=== PATIENT | female | born 1985 | race Caucasian/White ===

== ENCOUNTER 2024-04-24 09:55 | Emergency (ER) | payer BC ==
[~2024-04-24] VITALS: Ht 162.6 cm; Wt 79.4 kg
[2024-04-24 10:40] VITALS: PULSE 86; RESP 18; TEMP 97.6
[2024-04-24 11:32] LABS: CORONAVIRUS COVID-19 AG NEGATIVE (NEGATIVE); INFLUENZA A AG NEGATIVE (NEGATIVE); INFLUENZA B AG NEGATIVE (NEGATIVE)
[2024-04-24 13:19] LABS: BACTERIA,URINE FEW /HPF; BILIRUBIN,URINE NEGATIVE (NEGATIVE); CLARITY,URINE CLEAR (CLEAR); COLOR,URINE YELLOW (YELLOW); EPITHELIAL CELLS,URINE MODERATE /LPF; GLUCOSE, URINE NEGATIVE (NEGATIVE); KETONES,URINE NEGATIVE (NEGATIVE); LEUKOCYTE ESTERASE ,URINE NEGATIVE (NEGATIVE); NITRITE,URINE NEGATIVE (NEGATIVE); PH,URINE 7 (5 - 7); PREGNANCY TEST, URINE NEGATIVE (NEGATIVE); PROTEIN,URINE DIPSTICK NEGATIVE (NEGATIVE); RBC,URINE 0-5 /HPF (0-5); URINE UROBILINOGEN 0.2 mg/dL (0.2 - 1); WBC,URINE (MAN) 0-5 /HPF (0-5)
[2024-04-24 14:43] VITALS: BP 144/99; PULSE 81; RESP 18; TEMP 97.3; O2SAT 100
== END 2024-04-24 14:45 | disposition home or self-care (01) ==
LOC: ER 10:15
DX: R05.9 Cough, unspecified (principal); B34.9 Viral infection, unspecified; R30.0 Dysuria; R35.0 Frequency of micturition; I10 Essential (primary) hypertension; Z91.148 Patient's other noncompliance with medication regimen for other reason; F17.210 Nicotine dependence, cigarettes, uncomplicated
CPT/HCPCS: 71045; 81001; 81025; 87086; 93005; 99283